=== PATIENT | male | born 1980 | race Caucasian/White ===

== ENCOUNTER 2017-11-05 13:19 | Inpatient (IN) | payer SELFPAY ==
[2017-11-05] MEDS ORDERED: HYDRALAZINE HCL INJ/PF 20 MG/1 ML SDV IV ONE ×2 (14:11→16:48)
--- NOTE | 2017-11-05 14:16 | ER Document Report ---
ED Medical Screen (RME) - General Chief Complaint: High Blood Pressure Stated Complaint: BLOOD PRESSURE ISSUE Time Seen by Provider: 11/05/17 14:05 Notes: RME DISCLOSURE I have seen this patient as part of a Rapid Medical Evaluation and, if applicable, placed any initially appropriate orders. The patient will be seen and fully evaluated, including a full history and physical exam, by a provider ( in Main ED or Fast Track) when a room becomes available. 37M strong FH HTN here for eval of HBP. Went to dentist office this AM and was sent to his PCP 2/2 his severely elevated BP >240s. His PCP rechecked pressures and they were also >240 systolic on several checks so he was sent here. He has no symptoms and states "I feel completely normal". No prior history of hypertension. He has never taken blood pressure medicines in the past. His mother was diagnosed with high blood pressure in her 30s. EXAM Regular rate TRAVEL OUTSIDE OF THE [place] IN LAST 30 DAYS: No - Related Data Allergies/Adverse Reactions: No Known Allergies Allergy (Verified 11/05/17 14:07) Past Medical History - Social History Chew tobacco use (# tins/day): No Frequency of alcohol use: None Drug Abuse: None Renal/ Medical History: Denies: Hx Peritoneal Dialysis Physical Exam - Vital signs Vitals: BP 280/115 H 11/05/17 13:34 Course - Vital Signs Vital signs: Temp Pulse Resp BP Pulse Ox 98.7 F 105 H 16 252/131 H 100 11/05/17 13:57 11/05/17 13:57 11/05/17 13:57 11/05/17 13:57 11/05/17 13:57
--- NOTE | 2017-11-05 14:51 | RADIOLOGY REPORT (SQ) ---
EXAM DESCRIPTION: CHEST PA/LAT COMPLETED DATE/TIME: 11/05/2017 2:25 pm REASON FOR STUDY: severely elevated BP; cardiomegaly? COMPARISON: None. EXAM PARAMETERS: NUMBER OF VIEWS: two views TECHNIQUE: Digital Frontal and Lateral radiographic views of the chest acquired. RADIATION DOSE: NA LIMITATIONS: none FINDINGS: LUNGS AND PLEURA: No opacities, masses or pneumothorax. No pleural effusion. MEDIASTINUM AND HILAR STRUCTURES: No masses or contour abnormalities. HEART AND VASCULAR STRUCTURES: Heart normal size. No evidence for failure. BONES: No acute findings. HARDWARE: None in the chest. OTHER: No other significant finding. IMPRESSION: NO SIGNIFICANT RADIOGRAPHIC FINDING IN THE CHEST. TECHNICAL DOCUMENTATION: JOB ID: [id number] [employer]- All Rights Reserved
[2017-11-05 14:57] LABS: ABSOLUTE LYMPHOCYTES (AUTO) 0.6 10^3/uL (0.5-4.7); ABSOLUTE MONOCYTES (AUTO) 0.3 10^3/uL (0.1-1.4); BASOPHILS % (AUTO) 0.6 % (0-2); EOSINOPHILS % (AUTO) 0.4 % (0-6); HEMATOCRIT 47.1 % (37.9-51.0); HEMOGLOBIN 16.6 g/dL (13.5-17.0); LYMPHOCYTES % (AUTO) 8.9 % (13-45); MEAN CORPUSCULAR HEMOGLOBIN 30.2 pg (27.0-33.4); MEAN CORPUSCULAR HGB CONC 35.3 g/dL (32.0-36.0); MEAN CORPUSCULAR VOLUME 86 fl (80-97); MONOCYTES % (AUTO) 4.4 % (3-13); PLATELET COUNT 195 10^3/uL (150-450); RED BLOOD COUNT 5.49 10^6/uL (4.35-5.55); SEGMENTED NEUTROPHILS % (AUTO) 85.7 % (42-78); TOTAL CELLS COUNTED % (AUTO) 100 %; WHITE BLOOD COUNT 7.1 10^3/uL (4.0-10.5)
[2017-11-05 15:12] LABS: ANION GAP 13 (5-19); BLOOD UREA NITROGEN 12 mg/dL (7-20); CARBON DIOXIDE 31 mmol/L (22-30); CHLORIDE 99 mmol/L (98-107); GLUCOSE 109 mg/dL (75-110); SODIUM 143.3 mmol/L (137-145)
--- NOTE | 2017-11-05 15:28 | ER Document Report ---
ED General - General Chief Complaint: High Blood Pressure Stated Complaint: BLOOD PRESSURE ISSUE Time Seen by Provider: 11/05/17 14:05 Mode of Arrival: Ambulatory Information source: Patient Notes: 37-year-old male no previous medical history who did note that he was told by primary care physicians 3 years ago that he needed to return for evaluation of high blood pressure but was never diagnosed because he did not return presents with complaints of high blood pressure. Patient denies any complaints he was at the dentist office and was sent in for evaluation to a primary care office who sent him here TRAVEL OUTSIDE OF THE [place] IN LAST 30 DAYS: No - HPI Onset: Other Onset/Duration: Persistent Quality of pain: No pain Severity: Severe Pain Level: Denies Associated symptoms: Other Exacerbated by: Denies Relieved by: Denies Similar symptoms previously: Yes Recently seen / treated by doctor: No - Related Data Allergies/Adverse Reactions: No Known Allergies Allergy (Verified 11/05/17 14:07) Past Medical History - Social History Smoking Status: Never Smoker Cigarette use (# per day): No Chew tobacco use (# tins/day): No Smoking Education Provided: No Frequency of alcohol use: None Drug Abuse: None Family History: Reviewed & Not Pertinent Patient has suicidal ideation: No Patient has homicidal ideation: No Renal/ Medical History: Denies: Hx Peritoneal Dialysis Review of Systems - Review of Systems Notes: REVIEW OF SYSTEMS: CONSTITUTIONAL : Denies fever, chills, or sweats. Denies recent illness. EENT: Denies eye, ear, throat, or mouth pain or symptoms. Denies nasal or sinus congestion or discharge. Denies throat, tongue, or mouth swelling or difficulty swallowing. CARDIOVASCULAR: Denies chest pain. Denies palpitations or racing or irregular heart beat. Denies ankle edema. RESPIRATORY: Denies cough, cold, or chest congestion. Denies shortness of breath, difficulty breathing, or wheezing. GASTROINTESTINAL: Denies abdominal pain or distention. Denies nausea, vomiting , or diarrhea. Denies blood in vomitus, stools, or per rectum. Denies black, tarry stools. Denies constipation. GENITOURINARY: Denies difficulty urinating, painful urination, burning, frequency, blood in urine, or discharge. MUSCULOSKELETAL: Denies back or neck pain or stiffness. Denies joint pain or swelling. SKIN: Denies rash, lesions or sores. HEMATOLOGIC : Denies easy bruising or bleeding. LYMPHATIC: Denies swollen, enlarged glands. NEUROLOGICAL: Denies confusion or altered mental status. Denies passing out or loss of consciousness. Denies dizziness or lightheadedness. Denies headache. Denies weakness or paralysis or loss of use of either side. Denies problems with gait or speech. Denies sensory loss, numbness, or tingling. Denies seizures. PSYCHIATRIC: Denies anxiety or stress. Denies depression, suicidal ideation, or homicidal ideation. ALL OTHER SYSTEMS REVIEWED AND NEGATIVE. Dictation was performed using Path recognition software PHYSICAL EXAMINATION: GENERAL: Well-appearing, well-nourished and in no acute distress. HEAD: Atraumatic, normocephalic. EYES: Pupils equal round and reactive to light, extraocular movements intact, sclera anicteric, conjunctiva are normal. ENT: Nares patent, oropharynx clear without exudates. Moist mucous membranes. NECK: Normal range of motion, supple without lymphadenopathy LUNGS: Breath sounds clear to auscultation bilaterally and equal. No wheezes rales or rhonchi. HEART: Regular rate and rhythm without murmurs ABDOMEN: Soft, nontender, nondistended abdomen. No guarding, no rebound. No masses appreciated. Musculoskeletal: Normal range of motion, no pitting or edema. No cyanosis. NEUROLOGICAL: Cranial nerves grossly intact. Normal speech, normal gait. Normal sensory, motor exams PSYCH: Normal mood, normal affect. SKIN: Warm, Dry, normal turgor, no rashes or lesions noted. Physical Exam - Vital signs Vitals: BP 280/115 H 11/05/17 13:34 Course - Re-evaluation Re-evalutation: 11/05/17 15:28 Patient's lab work notes no significant abnormality, hydralazine was given - Vital Signs Vital signs: Temp Pulse Resp BP Pulse Ox 98.7 F 94 20 220/120 H 100 11/05/17 13:57 11/05/17 14:14 11/05/17 16:16 11/05/17 16:16 11/05/17 16:16 - Laboratory Result Diagrams: 11/05/17 14:39 11/05/17 14:39 Laboratory results interpreted by me: 11/05/17 11/05/17 14:39 14:39 Seg Neutrophils % 85.7 H Lymphocytes % 8.9 L Carbon Dioxide 31 H - EKG Interpretation by Me EKG shows normal: Sinus rhythm, [place], Intervals, QRS Complexes Voltage: Consistant with LVH Critical Care Note - Critical Care Note Total time excluding time spent on procedures (mins): 44 Comments: 44 minutes of critical care time spent in direct contact evaluating and reevaluating the patient, treating symptoms, reviewing labs and studies and speaking with family and consultants excluding any procedures Discharge - Discharge Clinical Impression: Hypertensive urgency, Left ventricular hypertrophy Condition: Stable Disposition: ADMITTED INPATIENT Admitting Provider: Hospitalist Unit Admitted: Telemetry
[2017-11-05] MEDS ORDERED: LABETALOL HCL INJ 20 MG/4 ML DISP.SYRIN IV ONE (16:34)
[2017-11-05] MEDS ORDERED: MAGNESIUM HYDROXIDE SUSP 30 ML UDCUP PO PRN (17:42)
[2017-11-05] MEDS ORDERED: ACETAMINOPHEN 325 MG TABLET PO PRN (17:42)
[2017-11-05] MEDS ORDERED: ZOLPIDEM TARTRATE 5 MG TABLET PO PRN (17:42)
[2017-11-05] MEDS ORDERED: TRAZODONE HCL 50 MG TABLET PO PRN (17:46)
[2017-11-05] MEDS ORDERED: LORAZEPAM INJ 2 MG/1 ML VIAL IV ONE (19:01)
[2017-11-05 20:00] LABS: APPEARANCE,URINE CLEAR; BILIRUBIN,URINE NEGATIVE (NEGATIVE); COLOR,URINE STRAW; GLUCOSE, URINE NEGATIVE (NEGATIVE); KETONES,URINE NEGATIVE (NEGATIVE); LEUKOCYTE ESTERASE,URINE NEGATIVE (NEGATIVE); NITRITE,URINE NEGATIVE (NEGATIVE); PROTEIN,URINE NEGATIVE (NEGATIVE); URINE SPECIFIC GRAVITY 1.003; UROBILINOGEN,URINE NEGATIVE mg/dL (<2.0)
[2017-11-05 20:15] LABS: URINE AMPHETAMINES SCREEN NEGATIVE; URINE BARBITURATES SCREEN NEGATIVE; URINE BENZODIAZEPINES SCREEN NEGATIVE; URINE COCAINE SCREEN NEGATIVE; URINE MARIJUANA (THC) SCREEN NEGATIVE; URINE METHADONE SCREEN NEGATIVE; URINE PHENCYCLIDINE SCREEN NEGATIVE
[2017-11-05] MEDS: METOPROLOL TARTRATE 50 MG TABLET PO SCH (22:02)
[2017-11-05] MEDS: HEPARIN SOD (PORCINE) 5,000 UNIT/ML 1 ML SYRINGE SUBCUT SCH (22:10)
[2017-11-05] MEDS ORDERED: ENALAPRILAT DIHYDRATE INJ/PF 1.25 MG/1 ML SDV IV ONE (22:20)
--- NOTE | 2017-11-06 02:15 | PDOC H&P ---
History of Present Illness Admission Date/PCP: 11/05/17 16:48 ANNABEL UGARTE MD Patient complains of: Elevated blood pressure History of Present Illness: MIL CR is a 37 year old male without significant medical history who was seen by his dentist and discovered to have uncontrolled hypertension of 290/ 115 he was referred to the hospital emergency department for evaluation where he received IV hydralazine and referred to the hospitalist for admission. Patient denies headache nausea vomiting chest pain or shortness of breath. No change of medications no recreational drugs and no previous episode however he admits to exceptional anxiety at times exacerbated by medical personnel. Single dose of IV hydralazine results in a blood pressure drop to 220 systolic, trial of IV Ativan results and only moderate response. He denies new medications, alcohol, recreational drugs, nutritional supplements, energy drinks or excessive caffeine. Past Medical History Medical History: None Psychiatric Medical History: Reports: General Anxiety Disorder Denies: Alcohol Dependency, Attention Deficit Hyperactivity Disorder, Bipolar Disorder, Dementia, Depression, Substance Abuse, Tobacco Dependency Past Surgical History Past Surgical History: Reports: None Social History Information Source: Patient Smoking Status: Never Smoker Frequency of Alcohol Use: Rare Hx Recreational Drug Use: No Drugs: None Hx Prescription Drug Abuse: No Family History Family History: Hypertension. denies: CAD, COPD, CVA Parental Family History Reviewed: Yes Children Family History Reviewed: Yes Sibling(s) Family History Reviewed.: Yes Medication/Allergy Home Medications: Albuterol Sulfate [Proair HFA] 1 puff IH Q4HP PRN 11/05/17 Multivitamin [Daily Multiple Vitamin] 1 tab PO DAILY 11/05/17 Allergies/Adverse Reactions: No Known Allergies Allergy (Verified 11/05/17 14:07) Physical Exam Vital Signs: Temp Pulse Resp BP Pulse Ox 98.7 F 94 14 177/116 H 98 11/05/17 13:57 11/05/17 14:14 11/06/17 00:30 11/06/17 00:31 11/06/17 00:31 General appearance: PRESENT: no acute distress, well-developed, well-nourished Head exam: PRESENT: atraumatic, normocephalic Eye exam: PRESENT: conjunctiva pink, EOMI, PERRLA. ABSENT: scleral icterus Ear exam: PRESENT: normal external ear exam Mouth exam: PRESENT: moist, tongue midline Neck exam: ABSENT: carotid bruit, JVD, lymphadenopathy, thyromegaly Respiratory exam: PRESENT: clear to auscultation [place]. ABSENT: rales, rhonchi, wheezes Cardiovascular exam: PRESENT: RRR. ABSENT: diastolic murmur, rubs, systolic murmur Pulses: PRESENT: normal dorsalis pedis pul Vascular exam: PRESENT: normal capillary refill GI/Abdominal exam: PRESENT: normal bowel sounds, soft. ABSENT: distended, guarding, mass, organolmegaly, rebound, tenderness Rectal exam: PRESENT: deferred Extremities exam: PRESENT: full ROM. ABSENT: calf tenderness, clubbing, pedal edema Neurological exam: PRESENT: alert, awake, oriented to person, oriented to place , oriented to time, oriented to situation, CN II-XII grossly intact. ABSENT: motor sensory deficit Psychiatric exam: PRESENT: appropriate affect, normal mood. ABSENT: homicidal ideation, suicidal ideation Skin exam: PRESENT: dry, intact, warm. ABSENT: cyanosis, rash Results Laboratory Results: 11/05/17 19:23 Urine Color STRAW Urine Appearance CLEAR Urine pH 8.0 Ur Specific [place] 1.003 Urine Protein NEGATIVE Urine Glucose (UA) NEGATIVE Urine Ketones NEGATIVE Urine Blood NEGATIVE Urine Nitrite NEGATIVE Ur Leukocyte Esterase NEGATIVE Urine WBC (Auto) 0 Urine RBC (Auto) 0 11/05/17 20:50 Troponin I 0.034 Impressions: Chest X-Ray 11/05/17 14:10 IMPRESSION: NO SIGNIFICANT RADIOGRAPHIC FINDING IN THE CHEST. Assessment & Plan - Diagnosis (1) Hypertensive urgency Is this a current diagnosis for this admission?: Yes Plan: Hydralazine and trial Vasotec. Evaluate TSH, urinalysis and consider renal artery ultrasound. (2) Left ventricular hypertrophy Is this a current diagnosis for this admission?: Yes Plan: Suggests chronic uncontrolled blood pressure. ISABEL inhibitor and beta-peter indicated consider 2D echo. (3) Anxiety Is this a current diagnosis for this admission?: Yes Plan: Trazodone as needed - Time Time Spent: 50 to 70 Minutes - Inpatient Certification Medical Necessity: Need Close Monitoring Due to Risk of Patient Decompensation
[2017-11-06 03:00] LABS: ABSOLUTE EOSINOPHILS # (AUTO) 0.1 10^3/uL (0.0-0.6); ABSOLUTE MONOCYTES (AUTO) 0.6 10^3/uL (0.1-1.4); ABSOLUTE NEUT (AUTO) 6.5 10^3/uL (1.7-8.2); BASOPHILS % (AUTO) 0.4 % (0-2); EOSINOPHILS % (AUTO) 1.3 % (0-6); HEMATOCRIT 45.4 % (37.9-51.0); HEMOGLOBIN 15.7 g/dL (13.5-17.0); LYMPHOCYTES % (AUTO) 12.4 % (13-45); MEAN CORPUSCULAR HEMOGLOBIN 29.8 pg (27.0-33.4); MEAN CORPUSCULAR HGB CONC 34.6 g/dL (32.0-36.0); MEAN CORPUSCULAR VOLUME 86 fl (80-97); MONOCYTES % (AUTO) 7.4 % (3-13); PLATELET COUNT 191 10^3/uL (150-450); RED BLOOD COUNT 5.27 10^6/uL (4.35-5.55); SEGMENTED NEUTROPHILS % (AUTO) 78.5 % (42-78); TOTAL CELLS COUNTED % (AUTO) 100 %; WHITE BLOOD COUNT 8.3 10^3/uL (4.0-10.5)
[2017-11-06 03:09] LABS: ALANINE AMINOTRANSFERASE 26 U/L (21-72); ALBUMIN 4.3 g/dL (3.5-5.0); ALKALINE PHOSPHATASE 67 U/L (38-126); ANION GAP 10 (5-19); ASPARTATE AMINO TRANSFERASE 18 U/L (17-59); BILIRUBIN,DIRECT 0.4 mg/dL (0.0-0.4); BILIRUBIN,TOTAL 0.7 mg/dL (0.2-1.3); BLOOD UREA NITROGEN 12 mg/dL (7-20); CARBON DIOXIDE 27 mmol/L (22-30); CHLORIDE 103 mmol/L (98-107); GLUCOSE 106 mg/dL (75-110); POTASSIUM 3.7 mmol/L (3.6-5.0); SODIUM 140.1 mmol/L (137-145)
[2017-11-06] MEDS: HEPARIN SOD (PORCINE) 5,000 UNIT/ML 1 ML SYRINGE SUBCUT SCH ×3 (06:24→22:06)
--- NOTE | 2017-11-06 09:39 | EKG REPORT ---
SEVERITY:- ABNORMAL ECG - SINUS TACHYCARDIA PROBABLE LVH WITH SECONDARY REPOL ABNRM : Confirmed by: Alexys Schwarz 06-Nov-2017 09:38:41
[2017-11-06] MEDS: METOPROLOL TARTRATE 50 MG TABLET PO SCH (10:43)
[2017-11-06] MEDS: HYDRALAZINE HCL INJ/PF 20 MG/1 ML SDV IV PRN ×2 (11:50→18:44)
[2017-11-06] MEDS: DOCUSATE SODIUM 100 MG CAPSULE PO SCH ×2 (11:51→18:24)
--- NOTE | 2017-11-06 21:00 | PDOC PROGRESS REPORT ---
Subjective Progress Note for:: 11/06/17 Subjective:: Okay, no chest pain no headaches, no palpitations. Reason For Visit: HYPERTENSIVE EMERGENCY Physical Exam Vital Signs: Temp Pulse Resp BP Pulse Ox 98.2 F 112 H 14 202/108 H 100 11/06/17 19:26 11/06/17 19:26 11/06/17 19:26 11/06/17 19:26 11/06/17 19:26 Intake & Output 11/05/17 11/06/17 11/07/17 06:59 06:59 06:59 Intake Total 0 Balance 0 GEN: NAD, well-deloped, well-nourished NECK supple, no JVD CV: RRR, NL S1S2 LUNGS: CTA bilaterally ABDOMEN Soft, NT, +BS EXTERMITIES: No e/c/c NEURO: Alert, oriented 3, nonfocal Results Laboratory Results: 11/06/17 02:40 11/06/17 02:40 11/06/17 11/06/17 02:40 02:40 WBC 8.3 RBC 5.27 Hgb 15.7 Hct 45.4 MCV 86 MCH 29.8 MCHC 34.6 RDW 13.0 Plt Count 191 Seg Neutrophils % 78.5 H Lymphocytes % 12.4 L Monocytes % 7.4 Eosinophils % 1.3 Basophils % 0.4 Absolute Neutrophils 6.5 Absolute Lymphocytes 1.0 Absolute Monocytes 0.6 Absolute Eosinophils 0.1 Absolute Basophils 0.0 Sodium 140.1 Potassium 3.7 Chloride 103 Carbon Dioxide 27 Anion Gap 10 BUN 12 Creatinine 0.93 Est GFR ( Amer) > 60 Est GFR (Non-Af Amer) > 60 Glucose 106 Calcium 10.0 Total Bilirubin 0.7 AST 18 ALT 26 Alkaline Phosphatase 67 Total Protein 7.0 Albumin 4.3 11/05/17 11/06/17 20:50 02:40 Troponin I 0.034 0.092 Impressions: Chest X-Ray 11/05/17 14:10 IMPRESSION: NO SIGNIFICANT RADIOGRAPHIC FINDING IN THE CHEST. Assessment & Plan - Diagnosis (1) Hypertensive urgency Is this a current diagnosis for this admission?: Yes Plan: Blood pressures remain elevated. Will add lisinopril and Norvasc to metoprolol diet he is currently on. Patient also on hydralazine IV as needed for systolic blood pressure greater than 180. -Follow Chem-7 in a.m. (2) Anxiety Is this a current diagnosis for this admission?: Yes Plan: Stable at this time, reports no symptoms at this time (3) Left ventricular hypertrophy Is this a current diagnosis for this admission?: Yes Plan: Secondary to hypertension. Consider echo as outpatient.
[2017-11-06 21:29] LABS: ABSOLUTE BASOPHILS # (AUTO) 0.1 10^3/uL (0.0-0.2); ABSOLUTE EOSINOPHILS # (AUTO) 0.2 10^3/uL (0.0-0.6); ABSOLUTE LYMPHOCYTES (AUTO) 1.3 10^3/uL (0.5-4.7); ABSOLUTE MONOCYTES (AUTO) 0.5 10^3/uL (0.1-1.4); ABSOLUTE NEUT (AUTO) 4.5 10^3/uL (1.7-8.2); BASOPHILS % (AUTO) 0.9 % (0-2); EOSINOPHILS % (AUTO) 2.4 % (0-6); HEMATOCRIT 47.5 % (37.9-51.0); HEMOGLOBIN 16.4 g/dL (13.5-17.0); LYMPHOCYTES % (AUTO) 20.4 % (13-45); MEAN CORPUSCULAR HEMOGLOBIN 29.6 pg (27.0-33.4); MEAN CORPUSCULAR HGB CONC 34.6 g/dL (32.0-36.0); MEAN CORPUSCULAR VOLUME 86 fl (80-97); MONOCYTES % (AUTO) 7.4 % (3-13); PLATELET COUNT 195 10^3/uL (150-450); RED BLOOD COUNT 5.55 10^6/uL (4.35-5.55); RED CELL DISTRIBUTION WIDTH 12.9 % (11.5-14.0); SEGMENTED NEUTROPHILS % (AUTO) 68.9 % (42-78); TOTAL CELLS COUNTED % (AUTO) 100 %; WHITE BLOOD COUNT 6.5 10^3/uL (4.0-10.5)
[2017-11-06 21:43] LABS: ANION GAP 11 (5-19); BLOOD UREA NITROGEN 12 mg/dL (7-20); CARBON DIOXIDE 29 mmol/L (22-30); CHLORIDE 103 mmol/L (98-107); GLUCOSE 96 mg/dL (75-110); POTASSIUM 3.9 mmol/L (3.6-5.0); SODIUM 142.7 mmol/L (137-145)
[2017-11-06] MEDS ORDERED: AMLODIPINE BESYLATE 5 MG TABLET PO SCH (22:00)
[2017-11-06] MEDS ORDERED: METOPROLOL TARTRATE 100 MG TABLET PO ONE (22:00)
[2017-11-06] MEDS ORDERED: LISINOPRIL 10 MG TABLET PO ONE (22:00)
[2017-11-07] MEDS: HYDRALAZINE HCL INJ/PF 20 MG/1 ML SDV IV PRN (01:11)
[2017-11-07] MEDS: HEPARIN SOD (PORCINE) 5,000 UNIT/ML 1 ML SYRINGE SUBCUT SCH (04:56)
[2017-11-07] MEDS: DOCUSATE SODIUM 100 MG CAPSULE PO SCH (09:51)
[2017-11-07] MEDS ORDERED: METOPROLOL SUCCINATE 50 MG TAB.SR.24H PO SCH (10:00)
[2017-11-07] MEDS ORDERED: AMLODIPINE BESYLATE 10 MG TABLET PO SCH (10:00)
[2017-11-07] MEDS ORDERED: LISINOPRIL 10 MG TABLET PO SCH (10:00)
[2017-11-07] MEDS ORDERED: ALBUTEROL SULFATE HFA (90 MCG/PUFF) 8 GM MDI (1 MDI/ER DISP) IH PRN (14:22)
[2017-11-07 14:50] VITALS: BP 148/83
--- NOTE | 2017-11-07 15:22 | PDOC DISCHARGE SUMMARY ---
General - Admit/Disc Date/PCP Admission Date/Primary Care Provider: 11/05/17 16:48 ANNABEL UGARTE MD Discharge Date: 11/07/17 - Discharge Diagnosis (1) Hypertensive urgency Is this a current diagnosis for this admission?: Yes (2) Anxiety Is this a current diagnosis for this admission?: Yes (3) Left ventricular hypertrophy Is this a current diagnosis for this admission?: Yes - Additional Information Resuscitation Status: Full Code Discharge Diet: As Tolerated Discharge Activity: Activity As Tolerated Prescriptions: Amlodipine Besylate [Norvasc 5 mg Tablet] 5 mg PO DAILY #30 tablet Lisinopril [Prinivil 10 mg Tablet] 10 mg PO DAILY #30 tablet Metoprolol Succinate [Toprol Xl 50 mg Tab.sr] 100 mg PO DAILY #30 tab.sr.24h Home Medications: Albuterol Sulfate [Proair HFA] 1 puff IH Q4HP PRN 11/05/17 Multivitamin [Daily Multiple Vitamin] 1 tab PO DAILY 11/05/17 Amlodipine Besylate [Norvasc 5 mg Tablet] 5 mg PO DAILY #30 tablet 11/07/17 Lisinopril [Prinivil 10 mg Tablet] 10 mg PO DAILY #30 tablet 11/07/17 Metoprolol Succinate [Toprol Xl 50 mg Tab.sr] 100 mg PO DAILY #30 tab.sr.24h History of Present Illness History of Present Illness: MIL CR is a 37 year old male without significant medical history who was seen by his dentist and discovered to have uncontrolled hypertension of 290/ 115. He was referred to the hospital emergency department for evaluation where he received IV hydralazine and referred to the hospitalist for admission. Patient had no headache, nausea, vomiting, chest pain, or shortness of breath. He admits to drinking plenty of diet soda on several cups of coffee a day, otherwise history pretty benign. He does report a family history of heart disease. Hospital Course Hospital Course: Patient was admitted to hospitalist service. His blood pressure with still running in the low 200s on his medications were adjusted, includes lisinopril 10 mg daily, metoprolol ER 100 mg daily as patient with LVH on EKG and tachycardia. He was also treated with amlodipine 10 mg daily. His blood pressure has improved markedly and now 156/92 on the left upper 148/83 on the right upper. He remains symptoms free. He is being discharged in stable condition. Since his blood pressure dropped quite quickly, we will reduce amlodipine to 5 mg daily and patient to follow-up with his primary care physician within 1-2 weeks for reevaluation and continued treatment. He is to follow-up with PCP sooner or return to the ED if problems/symptoms. PCP to consider further workup for possible secondary hypertension. Patient advised to limit soda and caffeine intake. Physical Exam Vital Signs: Temp Pulse Resp BP Pulse Ox 98.9 F 104 H 18 156/92 98 11/07/17 14:29 11/07/17 14:29 11/07/17 14:29 11/07/17 14:29 11/07/17 14:29 Intake & Output 11/06/17 11/07/17 11/08/17 06:59 06:59 06:59 Intake Total 1200 Balance 1200 Weight 83.3 kg GEN: NAD, well-deloped, well-nourished NECK supple, no JVD CV: RRR, NL S1S2 LUNGS: CTA bilaterally ABDOMEN Soft, NT, +BS EXTERMITIES: No e/c/c NEURO: Alert, oriented 3, nonfocal Results Laboratory Results: 11/06/17 21:20 11/06/17 21:20 11/06/17 11/06/17 21:20 21:20 WBC 6.5 RBC 5.55 Hgb 16.4 Hct 47.5 MCV 86 MCH 29.6 MCHC 34.6 RDW 12.9 Plt Count 195 Seg Neutrophils % 68.9 Lymphocytes % 20.4 Monocytes % 7.4 Eosinophils % 2.4 Basophils % 0.9 Absolute Neutrophils 4.5 Absolute Lymphocytes 1.3 Absolute Monocytes 0.5 Absolute Eosinophils 0.2 Absolute Basophils 0.1 Sodium 142.7 Potassium 3.9 Chloride 103 Carbon Dioxide 29 Anion Gap 11 BUN 12 Creatinine 0.87 Est GFR ( Amer) > 60 Est GFR (Non-Af Amer) > 60 Glucose 96 Calcium 10.0 11/05/17 11/06/17 20:50 02:40 Troponin I 0.034 0.092 Impressions: Chest X-Ray 11/05/17 14:10 IMPRESSION: NO SIGNIFICANT RADIOGRAPHIC FINDING IN THE CHEST. Plan Time Spent: Greater than 30 Minutes
[2017-11-08] MEDS ORDERED: METOPROLOL SUCCINATE 50 MG TAB.SR.24H PO SCH (10:00)
[2017-11-08] MEDS ORDERED: MULTIVITAMIN TABLET PO SCH (10:00)
[2017-11-08] MEDS ORDERED: AMLODIPINE BESYLATE 5 MG TABLET PO SCH (10:00)
== END 2017-11-07 15:14 | disposition home or self-care (01) | DRG 305 ==
LOC: ER 13:19 → EH 16:48 → 4S 11-06 15:45
PROVIDERS: ADMIT Emergency Medicine; ATTEND Emergency Medicine
DX: I16.1 Hypertensive emergency (principal); I10 Essential (primary) hypertension; F41.9 Anxiety disorder, unspecified; I51.7 Cardiomegaly; F41.1 Generalized anxiety disorder; Z79.899 Other long term (current) drug therapy; Z82.49 Family history of ischemic heart disease and other diseases of the circulatory system
CPT/HCPCS: 36415; 71046; 80048; 80053; 80307; 81001; 83880; 84443; 84484; 85025; 93005; 93010; 96374; 99291; J0360; J2060; J3490